=== PATIENT | female | born 1945 | race Asian ===

== ENCOUNTER → 2018-01-24 | Outpatient (CLI) | payer OTHER | LOC: CIMAGING 16:03 | PROVIDERS: ATTEND Nurse Practitioner | DX: R05 Cough (principal); E78.2 Mixed hyperlipidemia | CPT/HCPCS: 71046-PO ==

== ENCOUNTER → 2018-02-01 | Outpatient (CLI) | payer OTHER | LOC: CIMAGING 10:20 | PROVIDERS: ATTEND Nurse Practitioner | DX: Z12.31 Encounter for screening mammogram for malignant neoplasm of breast (principal) ==